=== PATIENT | male | born 1950 | race Caucasian/White ===

== ENCOUNTER 2017-07-12 10:48 | Outpatient (CLI) | payer MEDICARE, OTHER ==
[~2017-07-12 10:48] MED LIST: Gadobenate Dimeglumine 529 MG/1 ML (20ML VIAL) ONE
--- NOTE | 2017-07-12 17:19 | MRI ---
LUMBAR SPINE MRI WITH AND WITHOUT CONTRAST: Date: 07/12/17 HISTORY: Malignant neoplasm of the prostate. Severe back pain. Bilateral hip pain. Right-sided radiculopathy. Symptoms x1 week. Lifting injury. COMPARISON: None. TECHNIQUE: Lumbar spine MRI is performed with and without intravenous Gadolinium administration. Multisequentia l, multiplanar imaging is performed. FINDINGS: There is appropriate T1 marrow signal intensity of the lumbar vertebra. Lumbar spine vertebral body height is maintained. No fracture. There is multilevel Type II Modic change. 4.8 mm of anterolisthes is of T12 upon L1, 8.6 mm anterolisthesis of L5 upon S1. There appear to be bilateral pars defects a t L5. On the postcontrast images, there is no abnormal enhancement with regard to the vertebral bodies. Th ere is no abnormal enhancement in the thecal sac, including the cauda equina and conus medullaris. Symmetric signal intensity of the psoas muscles. Conus medullaris terminates at the T12-L1 level. T11-T12 and T12-L1: Disc desiccation with mild loss of disc space height. Mild central canal stenosis. Severe right and moderate left foraminal narrowing at T11-T12 and moderate to severe bilateral foraminal narrowing at T12-L1. L1-L2: Disc desiccation with mild loss of disc space height. No high grade central canal stenosis. Moderate right and moderate to severe left foraminal narrowing. L2-L3: Disc desiccation with mild loss of disc space height. No high grade central canal stenosis. Moderate right and moderate to severe left foraminal narrowing. L3-L4: Disc desiccation with mild loss of disc space height. No high grade central canal stenosis. Moderate bilateral foraminal narrowing. L4-L5: Disc desiccation with mild loss of disc space height. No high grade central canal stenosis. Moderate right and mild to moderate left foraminal narrowing. L5-S1: Disc desiccation with moderate loss of disc space height. No high grade central canal stenosis. Mild to moderate bilateral foraminal narrowing. IMPRESSION: 1. No abnormal enhancement. 2. Multifocal Type II Modic changes. 3. Spondylolisthesis as above. There are associated bilateral pars defects at L5. 4. There is no high grade central canal stenosis. However, there is significant foraminal narrowing throughout the lumbar spine as detailed above. POS: [facility]
== END 2017-07-12 10:49 | disposition home or self-care (01) ==
LOC: SCSMRI 10:48
PROVIDERS: ATTEND Internal Medicine Hematology & Oncology
DX: Z23 Encounter for immunization (principal); C61 Malignant neoplasm of prostate; M54.16 Radiculopathy, lumbar region; M43.16 Spondylolisthesis, lumbar region
CPT/HCPCS: 72158; A9579

== ENCOUNTER 2017-12-08 10:19 | Outpatient (CLI) | payer MEDICARE, OTHER ==
--- NOTE | 2017-12-08 14:27 | NM ---
WHOLE BODY BONE SCAN: Date: 12/08/17 COMPARISON: 06/18/14. HISTORY: History of prostate cancer with severe left hip pain. TECHNIQUE: A whole body bone scan was performed after administration of 30.4 mCi of technetium-99m MDP. FINDINGS: There is abnormal increased uptake of the radiopharmaceutical in the proximal aspect of the left femu r, including the femoral head and neck. This was not seen on the prior examination. There is also abn ormal uptake within the lateral 8th rib on the right, which was not seen on the prior examination. No other areas of increased or decreased uptake of the radiopharmaceutical are seen. IMPRESSION: Abnormal uptake within the left hip and within the right 8th rib. A left hip radiograph and right rib series are recommended for further evaluation of these regions. CODE T. POS: [facility]
== END 2017-12-08 10:20 | disposition home or self-care (01) ==
LOC: NM 10:19
PROVIDERS: ATTEND Internal Medicine Hematology & Oncology
DX: C61 Malignant neoplasm of prostate (principal); M25.552 Pain in left hip; R93.7 Abnormal findings on diagnostic imaging of other parts of musculoskeletal system
CPT/HCPCS: 78306; A9503

== ENCOUNTER 2017-12-13 12:06 | Outpatient (CLI) | payer MEDICARE, OTHER | END 2017-12-13 12:07 | disposition home or self-care (01) | LOC: BICRAD 12:06 | PROVIDERS: ATTEND Internal Medicine Hematology & Oncology | DX: Z23 Encounter for immunization (principal); M25.552 Pain in left hip; C61 Malignant neoplasm of prostate; R11.2 Nausea with vomiting, unspecified; M16.12 Unilateral primary osteoarthritis, left hip ==

== ENCOUNTER 2018-11-17 00:26 | Outpatient (CLI) | payer MEDICARE, OTHER ==
[2018-11-17 14:37] LABS: Bilirubin Negative (Negative); Blood, Urine Negative (Negative); Clarity CLEAR (Clear); Glucose, Urine (Dipstick) Negative (Negative); Leukocyte Negative (Negative); Nitrite Negative (Negative); Protein, Urine (Dipstick) Negative (Neg-Trace); Specific Gravity, Urine 1.005 (1.002-1.036); Urobilinogen 0.2 mg/dL (0.2-1.0); pH, Urine 7.5 (5.0-9.0)
[2018-11-17 14:39] LABS: Bacteria/HPF None Seen HPF (None Seen); Hyaline Casts/LPF 0-3 HYALINE CAST LPF (0-3 Hyaline); RBC/HPF 0-3 HPF (0-3); Squamous Epithelial None Seen HPF (0-3); WBC/HPF None Seen HPF (0-3)
--- NOTE | 2018-11-18 16:45 | EKG ---
Test Reason : Blood Pressure : / mmHG Vent. Rate : 061 BPM Atrial Rate : 061 BPM P-R Int : 172 ms QRS Dur : 086 ms QT Int : 432 ms P-R-T Axes : 039 -16 008 degrees QTc Int : 434 ms Normal sinus rhythm RSR' or QR pattern in V1 suggests right ventricular conduction delay Septal infarct , age undetermined Abnormal ECG When compared with ECG of 20-NOV-2016 23:57, RSR' pattern in V1 is now Present Septal infarct is now Present Nonspecific T wave abnormality now evident in Anterior leads Confirmed by DR. Kiran GALLEGOS ([id number]) on 11/18/2018 4:45:00 PM Referred By: JADON Confirmed By:DR. Kiran GALLEGOS
== END 2018-11-17 00:27 | disposition home or self-care (01) ==
LOC: LABBT 00:26
PROVIDERS: ATTEND Orthopaedic Surgery
DX: Z01.818 Encounter for other preprocedural examination (principal); M16.12 Unilateral primary osteoarthritis, left hip
CPT/HCPCS: 81001; 87081; 93005; 93010

== ENCOUNTER 2018-11-17 14:00 | Inpatient (IN) | payer MEDICARE, OTHER ==
[2018-11-17 12:51] VITALS: BMI 30.8
[2018-11-23 10:44] LABS: Hemoglobin 14.3 g/dL (14.0-18.0); Mean Corpuscular HGB CONC 33.6 g/dL (32.0-36.0); Mean Corpuscular Hemoglobin 29.8 pg (27.0-31.0); Mean Corpuscular Volume 88.6 fL (78.0-98.0); Mean Platelet Volume 6.6 fL (7.4-10.4); Platelet Count 278 thou/uL (130-400); RBC Distribution Width 12.4 % (11.5-14.5); White Blood Cell (WBC) Count 6.3 thou/uL (4.8-10.8)
[2018-11-23 11:07] LABS: Anion Gap 12 mmol/L (10-20); BUN (Urea Nitrogen) 24 mg/dL (8.4-25.7); Calc. Creatinine Clearance 0 mL/min (70-130); Calcium 9.5 mg/dL (7.8-10.44); Carbon Dioxide 27 mmol/L (23-31); Chloride 102 mmol/L (98-107); Estimated GFR-MDRD Greater than 90; Glucose 101 mg/dL (80-115); Potassium 4.4 mmol/L (3.5-5.1); Sodium 137 mmol/L (136-145)
[2018-11-29] MEDS ORDERED: Tranexamic Acid 1,000 MG/10 ML VIAL ONE (05:53)
[2018-11-29] MEDS ORDERED: Sodium Chloride 0.9% 100 ML ONE (05:53)
[2018-11-29] MEDS ORDERED: Vancomycin HCl 1.5 GM in Sodium Chloride 0.9% 250 ML 300 ML IVPB SCH ×2 (06:00→07:00)
[2018-11-29] MEDS ORDERED: Fentanyl 100 MCG/2 ML VIAL ONE ×2 (06:07→06:31)
[2018-11-29] MEDS ORDERED: Midazolam HCl 2 mg/2 ml Vial ONE (06:31)
[2018-11-29] MEDS ORDERED: Lidocaine 1.5% w/Epi 1:200K 30 ML VIAL (Epid Use) ONE (06:33)
[2018-11-29] MEDS ORDERED: diphenhydrAMINE 25 MG CAP PO PRN ×2 (06:46→08:00)
[2018-11-29] MEDS ORDERED: Ondansetron PF 4 MG/2 ML Vial IVP PRN ×2 (06:46→08:00)
[2018-11-29] MEDS ORDERED: HYDROcodone/Acetaminophen 10/325 mg Tablet PO PRN ×3 (06:46→14:29)
[2018-11-29] MEDS ORDERED: Acetaminophen 325 MG TAB PO PRN (06:46)
[2018-11-29] MEDS ORDERED: Ketorolac Tromethamine 30 MG/ML VIAL IVP PRN ×2 (06:46→08:00)
[2018-11-29] MEDS ORDERED: traMADol HCl 50 MG TAB PO PRN ×3 (06:46→08:00)
[2018-11-29] MEDS ORDERED: Promethazine HCl 25 MG/ML VIAL IM PRN ×3 (06:46→12:19)
[2018-11-29] MEDS ORDERED: Zolpidem Tartrate 5 MG TAB PO PRN ×2 (06:46→08:00)
[2018-11-29] MEDS ORDERED: Fentanyl 100 MCG/2 ML VIAL SLOW IVP PRN ×2 (06:46)
[2018-11-29] MEDS ORDERED: ePHEDrine/0.9% NaCl/PF SYRINGE 50 mg/10 ml ONE (07:05)
[2018-11-29] MEDS ORDERED: Ropivacaine 0.2% HCl/PF 20 ML ONE (07:57)
[2018-11-29] MEDS ORDERED: diphenhydrAMINE 50 MG/ML VIAL IM PRN (08:00)
[2018-11-29] MEDS ORDERED: Naloxone HCl 0.4 mg/ml Vial IV PRN (08:00)
[2018-11-29] MEDS ORDERED: Promethazine HCl 25 MG SUPP PR PRN (08:00)
[2018-11-29] MEDS ORDERED: Fentanyl 5 mcg/Bup 0.075% Cadd 100 ML EPIDURAL SCH (08:00)
[2018-11-29] MEDS ORDERED: HYDROcodone/Acetaminophen 5/325 mg Tablet PO PRN ×2 (08:00)
[2018-11-29] MEDS ORDERED: diphenhydrAMINE 50 MG/ML VIAL IVP PRN (08:00)
[2018-11-29] MEDS ORDERED: Naloxone HCl 0.4 mg/ml Vial IVP PRN (08:00)
[2018-11-29] MEDS ORDERED: Hydrocerin (Eucerin) Cream 120 gm Jar TOP PRN (08:00)
[2018-11-29] MEDS ORDERED: Bupivacaine 0.25% 10 ML VIAL EPIDURAL PRN (08:00)
[2018-11-29] MEDS ORDERED: Tranexamic Acid 1,000 MG in Sodium Chloride 0.9% 100 ML IVPB SCH (10:00)
[2018-11-29] MEDS ORDERED: Dexamethasone 4 mg/ml Vial ONE (11:06)
--- NOTE | 2018-11-29 11:06 | HP ---
HISTORY OF PRESENT ILLNESS: Mr. Waller is a 68-year-old male, who presents with left hip pain since almost a year ago. The patient is retired, is ambulating at times with a wheelchair, difficulty with weightbearing without pain, describes left hip pain, no history of surgery. No injuries. History of prostate cancer, treated with radiation. Followed by Dr. Crawley. The patient is previously on Taxotere as well as currently taking Zytiga. In discussion with Dr. Crawley, the patient's outlook is longer than 2+ years and feel that he would benefit from management of his left hip osteoarthritis. PAST MEDICAL HISTORY: Includes prostate cancer, rib fracture, and left hip osteoarthritis. PAST SURGICAL HISTORY: Prostate surgery, Dr. Hoffmann; ; prostate radiation, Dr. Ellis. ALLERGIES: SULFA. MEDICATIONS: Currently taking are; 1. Zytiga. 2. Hydrocodone. 3. Ibuprofen. 4. Lisinopril-hydrochlorithiazide. 5. Prednisone. 6. Sertraline. 7. Tramadol. SOCIAL HISTORY: The patient is retired. His and son are at the bedside. The patient is a nonsmoker. No alcohol. PHYSICAL EXAMINATION: VITAL SIGNS: Afebrile. GENERAL: Alert and oriented male, in no acute distress, resting comfortably in bed. EXTREMITIES: The patient has about a 2 cm leg length discrepancy. Pain is groin. Pain with internal rotation. The patient is neurovascularly intact distally. Has sensation intact to light touch. IMAGING DATA: The patient x-rays show flattened femoral head remodeling, possibly SCFE versus LeggCalvPerthes with joint space narrowing. ASSESSMENT: Osteoarthritis of left hip and history of prostate cancer with metastatic disease. PLAN: The patient will be taken to the operating room for left total hip arthroplasty. I discussed, I would not get his lengths completely back to perfect, but I will get them to closer. I discussed that the patient would be at substantial pain control from the procedure. I discussed the patient's care with Dr. Crawley. He understands with treatment plan that the patient is undergoing this for quality of life measures. I discussed the risks and benefits of surgery, pain, scar, bleeding, infection, damage to vital structures, blood clots, failure of hardware, fracture above and below, need for further surgeries, and loss of life or limb. The patient understands the risk of potential complications and elects to proceed with a left total hip arthroplasty. Job ID: [id number]
--- NOTE | 2018-11-29 11:46 | RAD ---
LEFT HIP 2 VIEWS: HISTORY: Postop total hip. COMPARISON: None. FINDINGS: Satisfactory appearance of left hip arthroplasty with possible linear lucency through the acetabulum. The right hip is normal. IMPRESSION: 1. Possible linear lucency through the acetabulum. Followup imaging is recommended. 2. Satisfactory appearance of the left hip arthroplasty. POS: C
--- NOTE | 2018-11-29 12:16 | OP ---
DATE OF PROCEDURE: 11/29/2018 PREOPERATIVE DIAGNOSIS: Left hip osteoarthritis secondary to Pjbu-Ugkwm-Iqvsnkm versus slipped capital femoral epiphysis. POSTOPERATIVE DIAGNOSIS: Left hip osteoarthritis secondary to Legg-Calve- Perthes versus slipped capital femoral epiphysis. PROCEDURE PERFORMED: Left total hip arthroplasty. MESSENGER FLOORPERSON: Fernie Villela PA-C ANESTHESIA: The patient received general endotracheal intubation with an epidural. ESTIMATED BLOOD LOSS: 150 mL. TOURNIQUET TIME: None. IMPLANTS: Sublimity size 58 hemispherical cluster Tritanium shell with a Trident X3 10-degree poly, 36 mm F, Accolade 5.5 cm TMZF stem, and an anatomic femoral head 36 mm +0. ANTIBIOTICS: Ancef 2 g and vancomycin 1.5 g. The patient received TXA 1 g. COMPLICATIONS: None. HISTORY OF PRESENT ILLNESS: Mr. Waller is a pleasant 68-year-old male, presented to me with left hip pain. The patient has a history of metastatic prostate cancer, currently treated by Dr. Crawley. The patient is stable per the report and with discussion with Dr. Crawley, he felt the patient would benefit from total hip arthroplasty given the potential duration of the patient's life. He is currently stable. I discussed with him the risks and benefits of the procedure include pain, scar, bleeding, infection, damage to vital structures, decreased range of motion and strength, nonunion, fracture above and below stem, continued pain despite surgery mentioned, instability, loss of life/limb. The patient understood the risks and benefits, and would like to proceed. DESCRIPTION OF PROCEDURE: Time-out was performed designating the patient's left lower extremity as the operative site based on site, consents, and markings. After time-out, the patient was placed in a lateral position with bony prominences well padded in the hip positioner. I made a lateral incision down through skin, down to the IT band. The IT band was split. The gluteus medius and minimus were peeled off in like fashion to expose the capsule, T'd the capsule, and removed bursal tissue plane noted within the hip socket. We exposed the entire hip socket, which was oblong because of the dysplastic femoral head. We cut the femoral head, excised it, sized it about a 56 to 57 mm head. We, with excess bone exposed, exposed our acetabulum, placed our acetabular retractors in position. We then reamed sequentially deepening to get into true fovea, reaming up to a 57 and placing a 58-mm cup, felt it with good anteversion and tilt. We knocked off some anterior osteophytes to help from any impingement anteriorly-inferiorly, and then we placed our polyethylene and moved back to our femoral neck. We broached sequentially up to a 5.5, finalized with 5.5 standard, felt to have overall good lengths. The patient had good stability on rotation, no bounce-back, reasonable Shuck, and had overall good alignment based on clinical parameters on table. We then washed. We removed and placed a 5.5 stem, placed our ball in place, reduced the hip, washed, closed the gluteus medius and gluteus minimus with #2, closed the IT band with #2, 2 Quill , 0 Quill, 2-0 Quill, and glue. The patient will be weightbearing as tolerated. He will follow up the [place] protocol, will be followed inhouse and continuos steroids for his testosterone treatment. Job ID: [id number] [facility]
[2018-11-29] MEDS ORDERED: Ondansetron HCl/PF 4 MG/2 ML Vial IVP PRN (12:19)
[2018-11-29] MEDS ORDERED: Promethazine HCl 25 MG/ML VIAL SLOW IVP PRN (12:19)
[2018-11-29] MEDS ORDERED: Bupivacaine HCl 0.5%/Epinephrine 1:200,000/PF 30 ml Vial ONE (13:10)
[2018-11-29] MEDS: Aspirin 81 mg Enteric Coated Tablet PO SCH ×2 (14:29→20:08)
[2018-11-29] MEDS: Ferrous Gluconate 324 MG TAB PO SCH ×2 (14:29→20:08)
[2018-11-29] MEDS: CEFAZOLIN 2 GM in Premix Bag 1 BAG IVPB SCH ×2 (14:29→15:39)
[2018-11-29] MEDS: Multivitamin W/ Minerals 1 TAB PO SCH (14:30)
[2018-11-29] MEDS: Senokot S 8.6-50 MG TAB PO SCH ×2 (14:30→20:08)
[2018-11-29] MEDS ORDERED: PROPOFOL 200 MG/20 ML VIAL ONE (14:46)
[2018-11-29] MEDS ORDERED: Succinylcholine Chloride 20 MG/ML 10 ml SYRINGE FS ONE (14:46)
[2018-11-29] MEDS ORDERED: PHENYLEPHRINE-NS 100 MCG/ML 10 ML SYRINGE ONE (14:46)
[2018-11-29] MEDS ORDERED: Ondansetron PF 4 MG/2 ML Vial ONE (14:46)
[2018-11-29] MEDS ORDERED: Lidocaine 1% PF 5 ML VIAL ONE (14:46)
[2018-11-29] MEDS ORDERED: Dexamethasone 20 MG/5 ML VIAL ONE (14:46)
[2018-11-29] MEDS ORDERED: Rocuronium Bromide 10 MG/ML (10ML VIAL) ONE (14:46)
[2018-11-29] MEDS ORDERED: ePHEDrine 50 MG/ML VIAL ONE (14:46)
--- NOTE | 2018-11-29 17:54 | CON ---
DATE OF CONSULTATION: 11/29/2018 REASON FOR CONSULTATION: Consult for Dr. Eubanks for medical management. HISTORY OF PRESENT ILLNESS: This patient is a 68-year-old male, who presented with degenerative disease of the left hip requiring left total hip arthroplasty. The patient is postop, doing well, has no specific concerns at this time. He has been able to eat and drink well postoperatively, and his pain is only about 3 to 4/10 at the moment. REVIEW OF SYSTEMS: All systems reviewed negative. PAST MEDICAL HISTORY: Prostate cancer, rib fracture, degenerative joint disease. PAST SURGICAL HISTORY: Radical prostatectomy. CURRENT MEDICATIONS: The patient has had chemotherapy. He is taking Zytiga, and he is on tramadol, lisinopril-hydrochlorothiazide, ibuprofen, sertraline, prednisone, hydrocodone. ALLERGIES: SULFA. FAMILY HISTORY: Father had stomach cancer. Mother had diabetes and heart failure. SOCIAL HISTORY: Reviewed. Nonsmoker, nondrinker, nondrug user. The patient is a bit frustrated about the code status conversation. He believes he had a conversation with someone initially when he presented and has had it several times since then; however, the only thing that seems to be referable to his conversation is the fact that he has a living will in the chart, but did not want to discuss it again. PHYSICAL EXAMINATION: VITAL SIGNS: Temperature 98.1, pulse 76, respirations 17, O2 saturation 94% on nasal cannula, BP 167/81. GENERAL APPEARANCE: Age-appropriate male, in no distress. He is awake, alert, oriented, pleasant, and cooperative. HEENT: He notes some strabismus. No open lesions. NECK: Supple and symmetric. HEART: Regular rate and rhythm without murmurs, gallops, or rubs. LUNGS: Clear to auscultation bilaterally. ABDOMEN: Soft, nontender, and nondistended. Positive bowel sounds. No masses and no organomegaly. EXTREMITIES: Good peripheral pulses. Warm and dry. No edema. LABORATORY DATA: Labs done on November 23 reveal white cell count of 6.3, hemoglobin 14.3. BMP, chemistries were normal. Urine was negative. IMPRESSION AND PLAN: 1. Postoperative hip arthroplasty, doing well. Followup to Ortho team. 2. History of prostate cancer on hormonal therapy, stable. Continue with his usual home regimen. 3. Hypertension, stable and well controlled. Continue with the lisinopril-hydrochlorothiazide. 4. We will resume his other home medications as there is no contraindication of any those at this time other than the ibuprofen. Job ID: [id number]
[2018-11-29] MEDS: HYDROcodone/Acetaminophen 10/325 mg Tablet PO PRN (20:06)
[2018-11-30] MEDS: HYDROcodone/Acetaminophen 10/325 mg Tablet PO PRN ×2 (01:19→08:58)
[2018-11-30] MEDS: ZYTIGA PO SCH (05:39)
[2018-11-30 05:54] LABS: Hemoglobin 10.9 g/dL (14.0-18.0); Mean Corpuscular HGB CONC 33.3 g/dL (32.0-36.0); Mean Corpuscular Hemoglobin 29.8 pg (27.0-31.0); Mean Corpuscular Volume 89.6 fL (78.0-98.0); Mean Platelet Volume 6.5 fL (7.4-10.4); Platelet Count 230 thou/uL (130-400); RBC Distribution Width 12.4 % (11.5-14.5); Red Blood Cell (RBC) Count 3.66 mill/uL (4.70-6.10); White Blood Cell (WBC) Count 8.6 thou/uL (4.8-10.8)
[2018-11-30] MEDS ORDERED: ZYTIGA PO SCH (06:00)
[2018-11-30] MEDS: Senokot S 8.6-50 MG TAB PO SCH ×2 (08:57→21:14)
[2018-11-30] MEDS: predniSONE 5 MG TAB PO SCH (08:57)
[2018-11-30] MEDS: Lisinopril/Hydrochlorothiazide 20 mg/12.5 mg Tablet PO SCH (08:58)
[2018-11-30] MEDS: Multivitamin W/ Minerals 1 TAB PO SCH (08:58)
[2018-11-30] MEDS: Ferrous Gluconate 324 MG TAB PO SCH ×2 (08:58→21:11)
[2018-11-30] MEDS: Aspirin 81 mg Enteric Coated Tablet PO SCH ×2 (08:58→21:11)
[2018-11-30] MEDS ORDERED: hydrALAZINE 20 MG/ML VIAL SLOW IVP PRN (17:39)
--- NOTE | 2018-11-30 19:08 | PDOC.PN ---
- Subjective Encounter Start Date: 11/30/18 Encounter Start Time: 18:45 Follow up medical management left total hip. No nausea since immediate postp. Eating well today. Pain 1/10 at surgical site. Last pain medication was at 8am. Worked with PT/OT - Objective Vital Signs & Weight: Vital Signs (12 hours) Temp Pulse Resp BP BP Pulse Ox 11/30/18 15:43 98.2 F 79 16 167/77 H 100 11/30/18 08:58 70 143/73 H 11/30/18 08:55 97 Weight Admit Weight 209 lb Weight 209 lb I&O: 11/29/18 11/30/18 12/01/18 06:59 06:59 06:59 Intake Total 1850 Output Total 1600 1250 Balance 250 -1250 Result Diagrams: 11/30/18 05:29 11/23/18 10:00 Phys Exam - Physical Examination Constitutional: NAD HEENT: moist MMs Neck: supple, full ROM Respiratory: clear to auscultation bilateral Cardiovascular: RRR Gastrointestinal: non-tender Expected edema present surgical site right leg Neurological: non-focal, moves all 4 limbs Psychiatric: A&O x 3 Skin: no rash Dx/Plan (1) Anemia due to blood loss Code(s): D50.0 - IRON DEFICIENCY ANEMIA SECONDARY TO BLOOD LOSS (CHRONIC) Status: Acute Comment: Ordered am CBC, Hg 10.9 today. Continue oral iron (2) Prostate cancer Code(s): C61 - MALIGNANT NEOPLASM OF PROSTATE Status: Acute (3) Osteoarthritis Code(s): M19.90 - UNSPECIFIED OSTEOARTHRITIS, UNSPECIFIED SITE Status: Acute (4) Status post total hip replacement, right Code(s): Z96.641 - PRESENCE OF RIGHT ARTIFICIAL HIP JOINT Status: Acute Comment: Excellent progress postop (5) Hypertension Code(s): I10 - ESSENTIAL (PRIMARY) HYPERTENSION Status: Acute Qualifiers: Hypertension type: essential hypertension Qualified Code(s): I10 - Essential (primary) hypertension Comment: Continue home medication, added prn hydralazine - Plan cont current plan of care, plan discussed w/ family, PT/OT, out of bed/ambulate * .
[2018-12-01 04:53] LABS: #Eosinphils 0.1 thou/uL (0.0-0.7); #Lymphocytes 0.9 thou/uL (1.20-3.40); #Monocytes 1.2 thou/uL (0.11-0.59); #Neutrophils 5.6 thou/uL (1.40-6.50); %Basophils 0.1 % (0.0-1.0); %Eosinophils 1.9 % (0.0-10.0); %Lymphocytes 11.8 % (21.0-51.0); %Monocytes 14.8 % (0.0-10.0); %Neutrophils 71.4 % (42.0-75.0); Mean Corpuscular HGB CONC 33.7 g/dL (32.0-36.0); Mean Corpuscular Hemoglobin 30.6 pg (27.0-31.0); Mean Corpuscular Volume 90.6 fL (78.0-98.0); Mean Platelet Volume 6.7 fL (7.4-10.4); Platelet Count 221 thou/uL (130-400); RBC Distribution Width 12.6 % (11.5-14.5); Red Blood Cell (RBC) Count 3.59 mill/uL (4.70-6.10); White Blood Cell (WBC) Count 7.8 thou/uL (4.8-10.8)
[2018-12-01 05:16] LABS: Anion Gap 10 mmol/L (10-20); BUN (Urea Nitrogen) 17 mg/dL (8.4-25.7); Calc. Creatinine Clearance 151 mL/min (70-130); Calcium 8.4 mg/dL (7.8-10.44); Carbon Dioxide 29 mmol/L (23-31); Chloride 105 mmol/L (98-107); Estimated GFR-MDRD Greater than 90; Glucose 105 mg/dL (80-115); Potassium 3.7 mmol/L (3.5-5.1); Sodium 140 mmol/L (136-145)
[2018-12-01] MEDS: ZYTIGA PO SCH (05:23)
[2018-12-01] MEDS: Senokot S 8.6-50 MG TAB PO SCH ×2 (08:26→20:16)
[2018-12-01] MEDS: predniSONE 5 MG TAB PO SCH (08:27)
[2018-12-01] MEDS: Ferrous Gluconate 324 MG TAB PO SCH ×2 (08:27→20:15)
[2018-12-01] MEDS: Multivitamin W/ Minerals 1 TAB PO SCH (08:27)
[2018-12-01] MEDS: Lisinopril/Hydrochlorothiazide 20 mg/12.5 mg Tablet PO SCH (08:27)
[2018-12-01] MEDS: Aspirin 81 mg Enteric Coated Tablet PO SCH ×2 (08:27→20:16)
[2018-12-01] MEDS: HYDROcodone/Acetaminophen 10/325 mg Tablet PO PRN ×2 (08:30→20:16)
--- NOTE | 2018-12-01 22:01 | PDOC.PN ---
- Subjective Encounter Start Date: 12/01/18 Encounter Start Time: 09:00 Patient seen and examined for med mngt. Pain controlled. No new complaints. No overnight events - Objective MAR Reviewed: Yes Vital Signs & Weight: Vital Signs (12 hours) Temp Pulse Resp BP Pulse Ox 12/01/18 20:00 99.2 F 83 16 158/78 H 95 12/01/18 15:12 98.1 F 71 20 157/97 H 96 12/01/18 11:25 98.1 F 83 16 146/71 H 97 Weight Admit Weight 209 lb Weight 209 lb I&O: 11/30/18 12/01/18 12/02/18 06:59 06:59 06:59 Intake Total 7699 131 7529 Output Total 1600 3000 600 Balance 250 -2700 1330 Result Diagrams: 12/02/18 06:14 12/01/18 04:18 Phys Exam - Physical Examination Constitutional: NAD Respiratory: no wheezing, no rhonchi Cardiovascular: RRR, no rub Gastrointestinal: soft, non-tender, positive bowel sounds Musculoskeletal: no edema Dx/Plan - Plan DVT proph w/SCDs 1. HTN 2. Depression - mild - stable 3. Obesity BMI 30.9 4. h/o Prostate Ca Plan: Cont Sertraline Cont Lisinopril/HCTZ Review of Systems - Review of Systems Respiratory: negative: Cough, Dry, Shortness of Breath, Hemoptysis, SOB with Excertion, Pleuritic Pain, Sputum, Wheezing Cardiovascular: negative: chest pain, palpitations, orthopnea, paroxysmal nocturnal dyspnea, edema, light headedness, other - Medications/Allergies Allergies/Adverse Reactions: Allergies Allergy/AdvReac Type Severity Reaction Status Date / Time Sulfa (Sulfonamide Allergy "bleed out" Verified 11/17/18 12:52 Antibiotics) Medications: Current Medications Acetaminophen (Tylenol) 650 mg PO Q4H PRN PRN Reason: Headache/Fever or Pain Last Admin: 11/30/18 23:13 Dose: 650 mg Hydrocodone Bitart/Acetaminophen ([place] 10/325) 1 tab PO Q4H PRN PRN Reason: PAIN SCALE 1-4 Hydrocodone Bitart/Acetaminophen ([place] 10/325) 2 tab PO Q4H PRN PRN Reason: PAIN SCALE 5-10 Last Admin: 12/01/18 20:16 Dose: 2 tab Aspirin (Ecotrin) 81 mg PO BID [facility] Last Admin: 12/01/18 20:16 Dose: 81 mg Diphenhydramine HCl (Benadryl) 25 mg PO Q3H PRN PRN Reason: Itching Last Admin: 12/01/18 20:15 Dose: 25 mg Diphenhydramine HCl (Benadryl) 25 mg IM Q3H PRN PRN Reason: Itching Diphenhydramine HCl (Benadryl) 25 mg IVP Q3H PRN PRN Reason: Itching Emollient Cream (Hydrocerin Cream) 0 gm TOP PRN PRN PRN Reason: Itching Ferrous Gluconate (Fergon) 324 mg PO BID [facility] Last Admin: 12/01/18 20:15 Dose: 324 mg Lisinopril/HCTZ (Prinizide 20-12.5) 1 tab PO DAILY [facility] Last Admin: 12/01/18 08:27 Dose: 1 tab Hydralazine HCl (Apresoline) 5 mg SLOW IVP Q4H PRN PRN Reason: SBP>170 Iron/Minerals/Multivitamins (Theragran M) 1 tab PO DAILY [facility] Last Admin: 12/01/18 08:27 Dose: 1 tab Ketorolac Tromethamine (Toradol) 15 mg IVP Q6H PRN PRN Reason: Moderate Pain (4-6) Stop: 12/02/18 08:01 Miscellaneous Information (Communication Order-Pharmacy) 1 each FS ASDIR [facility] Naloxone HCl (Narcan) 0.2 mg IV Q5MIN PRN PRN Reason: RR <=8 OR OBTUNDED/UNAROUSABLE Naloxone HCl (Narcan) 0.1 mg IVP Q15MIN PRN PRN Reason: URINARY RETENTION Zytiga 0 each PO 0600 [facility] Last Admin: 12/01/18 05:23 Dose: 4 each Ondansetron HCl (Zofran) 4 mg IVP Q6H PRN PRN Reason: Nausea/Vomiting Prednisone (Prednisone) 10 mg PO DAILY [facility] Last Admin: 12/01/18 08:27 Dose: 10 mg Promethazine HCl (Phenergan) 12.5 mg IM Q4H PRN PRN Reason: Nausea Promethazine HCl (Phenergan Suppository) 25 mg UT Q4H PRN PRN Reason: Nausea/Vomiting Senna/Docusate Sodium (Senokot S) 2 tab PO BID [facility] Last Admin: 12/01/18 20:16 Dose: Not Given Sertraline HCl (Zoloft) 100 mg PO DAILY [facility] Last Admin: 12/01/18 08:27 Dose: 100 mg Sodium Chloride (Flush - Normal Saline) 10 ml IVF PRN PRN PRN Reason: Saline Flush Tramadol HCl (Ultram) 50 mg PO Q6H PRN PRN Reason: Mild Pain 1-3 Tramadol HCl (Ultram) 100 mg PO Q6H PRN PRN Reason: Moderate Pain 4-6 Zolpidem Tartrate (Ambien) 5 mg PO HSPRN PRN PRN Reason: Insomnia
[2018-12-02] MEDS: ZYTIGA PO SCH (05:36)
[2018-12-02 06:38] LABS: Hemoglobin 11.7 g/dL (14.0-18.0); Mean Corpuscular HGB CONC 32.4 g/dL (32.0-36.0); Mean Corpuscular Hemoglobin 29.6 pg (27.0-31.0); Mean Corpuscular Volume 91.6 fL (78.0-98.0); Mean Platelet Volume 6.6 fL (7.4-10.4); Platelet Count 259 thou/uL (130-400); RBC Distribution Width 12.6 % (11.5-14.5); Red Blood Cell (RBC) Count 3.96 mill/uL (4.70-6.10); White Blood Cell (WBC) Count 7.4 thou/uL (4.8-10.8)
[2018-12-02] MEDS: Senokot S 8.6-50 MG TAB PO SCH (08:28)
[2018-12-02] MEDS: HYDROcodone/Acetaminophen 10/325 mg Tablet PO PRN ×2 (08:28→14:45)
[2018-12-02] MEDS: Lisinopril/Hydrochlorothiazide 20 mg/12.5 mg Tablet PO SCH (08:29)
[2018-12-02] MEDS: Ferrous Gluconate 324 MG TAB PO SCH (08:29)
[2018-12-02] MEDS: predniSONE 5 MG TAB PO SCH (08:29)
[2018-12-02] MEDS: Aspirin 81 mg Enteric Coated Tablet PO SCH (08:29)
[2018-12-02] MEDS: Multivitamin W/ Minerals 1 TAB PO SCH (08:30)
[2018-12-02] MEDS ORDERED: Calcium Carbonate 500 MG ChewTAB PO PRN (09:41)
[2018-12-02 13:19] VITALS: BP 148/76; TEMP 98.2
== END 2018-12-02 15:21 | DRG 470 ==
LOC: SJJU 11-29 05:29 → SURG B 11-29 13:21
PROVIDERS: ADMIT Orthopaedic Surgery; ATTEND Orthopaedic Surgery
PROC: 0SRB04Z Replacement of Left Hip Joint with Ceramic on Polyethylene Synthetic Substitute, Open Approach (ICD-10-PCS; principal; 2018-11-29)
DX: M16.12 Unilateral primary osteoarthritis, left hip (principal); D62 Acute posthemorrhagic anemia; I10 Essential (primary) hypertension; F32.9 Major depressive disorder, single episode, unspecified; E66.9 Obesity, unspecified; Z85.46 Personal history of malignant neoplasm of prostate; Z88.2 Allergy status to sulfonamides; Z79.899 Other long term (current) drug therapy; Z79.52 Long term (current) use of systemic steroids; Z68.30 Body mass index [BMI] 30.0-30.9, adult
CPT/HCPCS: 36415; 80048; 85027; 86850; 86900; 86901; 88304; 88311; C1776; J0670; J1100; J2001; J2250; J2405; J2704; J2795; J3010; J3370; J3490; J7050; J7512; Q0163

== ENCOUNTER 2018-11-23 09:35 | Outpatient (CLI) | payer MEDICARE, OTHER ==
[2018-11-23 10:45] LABS: Prothrombin Time 13.3 SEC (12.0-14.7)
== END 2018-11-23 09:36 | disposition home or self-care (01) ==
LOC: LABBT 09:35
PROVIDERS: ATTEND Orthopaedic Surgery
DX: Z01.812 Encounter for preprocedural laboratory examination (principal); M16.12 Unilateral primary osteoarthritis, left hip
CPT/HCPCS: 85610

== ENCOUNTER 2019-02-28 08:05 | Outpatient (CLI) | payer MEDICARE, OTHER ==
[2019-02-28 08:48] LABS: Estimated GFR-MDRD - POC Greater than 90
--- NOTE | 2019-02-28 11:40 | CT ---
ABDOMEN CT WITH CONTRAST PELVIC CT WITH CONTRAST: Date: 02/28/19 HISTORY: Prostate cancer. Elevated PSA levels. Previous prostate surgery 8 years ago. COMPARISON: 01/22/15. FINDINGS: ABDOMEN CT: Lung bases are clear. Normal heart size. No significant pericardial fluid. The descending thoracic ao rta and abdominal aorta have an overall normal caliber. No periaortic fat stranding. Gallbladder is unremarkable. Portal vein is patent. Multiple subcentimeter hypodensities throughout the liver, similar to the previous examination. Lesio ns are too small to characterize, but are statistically favored to be cysts. Spleen, pancreas, and ad renal glands have appropriate attenuation and enhancement. No gastrohepatic, retrocrural, or periportal lymphadenopathy. Symmetric enhancement of the kidneys. Redemonstration of exophytic, slightly hyperdense lesion emanating from the mid pole of the left kidn ey, currently measuring 2.7 x 2.3 cm (previously measuring 2.4 x 1.7 cm). Slight interval growth. The re are parapelvic cysts in the left renal pelvis. There is interval development of a hypodensity whic h has a parapelvic and cortical component measuring 3.0 x 3.5 cm. With regards to the right kidney, no evidence of obstructive uropathy. 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 No mesenteric mass, lymphadenopathy, free air, or free fluid. There are borderline enlarged left rufino aortic lymph nodes, similar to the previous examination. There is some nonspecific stranding around t hese stable left periaortic lymph nodes. Gastric mucosa, duodenum, and multiple normal caliber small bowel loops are identified. Ileocecal krish ction is normal. Normal caliber appendix. Contrast and fecal material in nondistended, nondilated col on. CT PELVIS: Limited evaluation due to beam attenuation artifact from left hip arthroplasty. There are surgical cl ips in the right hemipelvis. No pelvic mass, lymphadenopathy, free air, or free fluid. Urinary bladde r is unremarkable. Multifocal sclerotic lesions throughout the spine, compatible with multifocal osseous metastasis in a patient with known prostate cancer and elevated PSA. [employer] sclerotic focus at the right asp ect of L2 measures 1.5 x 1.4 cm. IMPRESSION: 1. Interval increase in size of a hyperdense lesion in the mid left renal cortex which may represent a complex cyst. There is also interval development of a parapelvic and cortical cyst in the upper po le of the left kidney. Better interrogation with abdomen MRI is recommended, with regards to both afo rementioned lesions. 2. Stable hypodensities in the liver. 3. No obvious pelvic mass, lymphadenopathy, free air, or free fluid. 4. Redemonstration of left periaortic lymph nodes which are nonspecific. 5. Diffuse sclerotic lesions throughout the visualized spine, ribs, pelvis, compatible with multifoc al osseous metastasis. POS: OFF
--- NOTE | 2019-02-28 12:52 | NM ---
NUCLEAR MEDICINE BONE SCAN WHOLE BODY: (Skeletal scintigraphy) DATE: 02/28/2019 HISTORY: 68-year-old male with prostate cancer with rising serum PSA levels. COMPARISON: 12/08/2017 TECHNIQUE: IV injection of technetium 99m-MDP: 31.6 mCi 3 hour delayed whole body skeletal scintigraphy in anterior and posterior views. FINDINGS: There is a new finding of a large number of small foci of abnormally increased uptake throughout much of the skeleton, including skull, right mandible, sternum, bilateral ribs, thoracic spine, lumbar spine, pelvis, right humeral shaft, probable left humeral shaft, probable mildly increased uptake in left femur and right femur. The previously demonstrated high-grade left hip DJD has been treated with hip replacement metallic hardware with photopenic defect. Scoliosis of lumbar spine. IMPRESSION: Diffuse osseous skeletal metastasis.
== END 2019-02-28 08:06 | disposition home or self-care (01) ==
LOC: CT 08:05
PROVIDERS: ATTEND Internal Medicine Hematology & Oncology
DX: C61 Malignant neoplasm of prostate (principal); C79.51 Secondary malignant neoplasm of bone; N28.9 Disorder of kidney and ureter, unspecified; K76.89 Other specified diseases of liver; M89.9 Disorder of bone, unspecified
CPT/HCPCS: 74177; 78306; 82565; A9503

== ENCOUNTER 2019-03-31 14:53 | Outpatient (CLI) | payer MEDICARE, OTHER ==
--- NOTE | 2019-03-31 17:01 | MRI ---
MRI OF THE LUMBAR SPINE WITHOUT CONTRAST: 03/31/19 HISTORY: Spinal stenosis. History of bone cancer. COMPARISON: 07/12/17. CORRELATION: Whole body bone scan, 02/28/19. FINDINGS: Coronal T1 weighted images demonstrate mild rightward curvature of the lumbar spine centered at the L 3 level. There is a T2 hyperintensity in the left renal pelvis, likely representing a cyst. Possible cyst asso ciated with the spleen, incompletely evaluated. Conus medullaris terminates at the inferior aspect of T12. There is diffuse atrophy of the paraspinal muscles. There is overall heterogeneous marrow signal intensity of the lumbar vertebrae. Redemonstration of ty pe II Modic changes. Interval development of T1 marrow signal hypointensity with associated T2 and ST IR hyperintensity involving the T10, T11, T12, L1, L3, L4, L5, and S1 levels. Vertebral body height i s maintained. No fracture. Spondylolisthesis: 5.1 mm of anterolisthesis of T12 upon L1, 3.5 mm of retrolisthesis of L1 upon L2, 8.0 mm anterolisthesis of L5 upon S1. There is multilevel severe loss of disc space height. T11-T12 and T12-L1: Mild central canal stenosis at T11-T12 and mild to moderate central canal stenosi s at T12-L1. Significant bilateral foraminal narrowing at those levels. L1-L2: Severe loss of disc space height. Broad based disc bulge does not cause any significant centra l canal stenosis. There is some mass effect upon the posterior left aspect of the thecal sac secondar y to ligamentum flavum thickening and facet hypertrophy. Overall mild central canal stenosis. Mild to moderate right and moderate to severe left foraminal narrowing. L2-L3: Severe loss of disc space height. Broad based disc osteophyte complex abuts the thecal sac. No significant central canal stenosis. Moderate right and moderate to severe left foraminal narrowing. L3-L4: Desiccation with moderate loss of disc space height. Broad based disc bulge results in mild ce ntral canal stenosis. Moderate to severe right and moderate left foraminal narrowing. L4-L5: Severe loss of disc space height. No significant central canal stenosis. Moderate to severe ri ght and moderate left foraminal narrowing. L5-S1: Severe loss of disc space height. No evidence of high grade central canal stenosis. Mild to m oderate bilateral foraminal narrowing. Note, there are bilateral pars defects at L5. IMPRESSION: 1. No evidence of high grade central canal stenosis. Varying degrees of neural foraminal narrowi ng as detailed above. 2. Spondylolisthesis as detailed above. There are bilateral pars defects at L5. 3. Multilevel neural foraminal narrowing as above. 4. Multifocal osseous metastases without evidence of pathologic fracture. POS: CATHERINE
== END 2019-03-31 14:54 | disposition home or self-care (01) ==
LOC: BICMRI 14:53
PROVIDERS: ATTEND Orthopaedic Surgery
DX: M48.061 Spinal stenosis, lumbar region without neurogenic claudication (principal); M48.04 Spinal stenosis, thoracic region; M48.05 Spinal stenosis, thoracolumbar region; M43.15 Spondylolisthesis, thoracolumbar region; M43.16 Spondylolisthesis, lumbar region; M43.17 Spondylolisthesis, lumbosacral region; C79.51 Secondary malignant neoplasm of bone
CPT/HCPCS: 72148

== ENCOUNTER 2019-09-14 11:42 | Emergency (ER) | payer MEDICARE, OTHER ==
[2019-09-14] MEDS ORDERED: Ondansetron PF 4 MG/2 ML Vial ONE (12:01)
[2019-09-14] MEDS ORDERED: Fentanyl 100 MCG/2 ML VIAL ONE (12:01)
--- NOTE | 2019-09-14 12:32 | RAD ---
RADIOGRAPH RIGHT WRIST 3 VIEWS: DATE: 09/14/2019 HISTORY: 69-year-old male with prostate cancer and right wrist pain. FINDINGS: No fracture is identified. However, if there is snuffbox tenderness following trauma that suggests an occult scaphoid fracture, then the general recommendation is immobilization and follow-up imaging in 5-10 days. There is moderate DJD at the STT complex and also at the first CMC joint. There is soft tissue swelling at the volar aspect of the wrist without calcifications or subcutaneous emphysema. No periostitis. No permeative lesion. No osteoblastic metastatic bone lesion identified. IMPRESSION: 1. Soft tissue swelling at the volar aspect of the wrist. 2. Moderate osteoarthrosis of the first carpometacarpal joint and triscaphe the region. 3. No acute fracture.
[2019-09-14 12:38] LABS: #Eosinphils 0.1 thou/uL (0.0-0.7); #Lymphocytes 0.5 thou/uL (1.20-3.40); #Monocytes 0.4 thou/uL (0.11-0.59); #Neutrophils 5.7 thou/uL (1.40-6.50); %Basophils 0.1 % (0.0-1.0); %Eosinophils 1.2 % (0.0-10.0); %Lymphocytes 7.5 % (21.0-51.0); %Monocytes 6.4 % (0.0-10.0); %Neutrophils 84.7 % (42.0-75.0); Hemoglobin 12.1 g/dL (14.0-18.0); Mean Corpuscular HGB CONC 32.8 g/dL (32.0-36.0); Mean Corpuscular Hemoglobin 29.9 pg (27.0-31.0); Mean Platelet Volume 7.1 fL (7.4-10.4); Platelet Count 202 thou/uL (130-400); RBC Distribution Width 15.2 % (11.5-14.5); Red Blood Cell (RBC) Count 4.05 mill/uL (4.70-6.10); White Blood Cell (WBC) Count 6.7 thou/uL (4.8-10.8)
[2019-09-14 12:52] LABS: ALT (SGPT) 16 U/L (8-55); AST (SGOT) 20 U/L (5-34); Albumin 4.1 g/dL (3.4-4.8); Alkaline Phosphatase 267 U/L (40-110); Anion Gap 14 mmol/L (10-20); BUN (Urea Nitrogen) 28 mg/dL (8.4-25.7); Bilirubin, Total 0.7 mg/dL (0.2-1.2); CRP (Inflammatory) 1.95 mg/dL (= or < 0.5); Calc. Creatinine Clearance 0 mL/min (70-130); Carbon Dioxide 25 mmol/L (23-31); Chloride 101 mmol/L (98-107); Estimated GFR-MDRD Greater than 90; Globulin 2.4 g/dL (2.4-3.5); Glucose 92 mg/dL (80-115); Protein, Total 6.5 g/dL (5.8-8.1); Sodium 136 mmol/L (136-145); Uric Acid 5.3 mg/dL (3.5-7.2)
[2019-09-14] MEDS ORDERED: Ketorolac Tromethamine 30 MG/ML VIAL ONE (13:37)
[2019-09-14] MEDS ORDERED: Dexamethasone 10 MG/ML VIAL ONE (13:37)
== END 2019-09-14 13:50 | disposition home or self-care (01) ==
LOC: ERS 11:42
DX: M19.031 Primary osteoarthritis, right wrist (principal); I10 Essential (primary) hypertension
CPT/HCPCS: 36415; 80053; 84550; 85025; 85652; 86140; 87040; 96374; 96375; J1100; J1885; J2405; J3010